=== PATIENT | female | born 1985 | race Caucasian/White ===

== ENCOUNTER 2019-04-03 18:02 | Outpatient (CLI) | payer OTHER ==
[~2019-04-03] VITALS: Ht 160 cm; Wt 102.1 kg
[~2019-04-03 18:02] MED LIST: DENIES; PREN-39 PO
[2019-04-03 19:21] VITALS: BP 134/74; PULSE 96; RESP 18
[2019-04-03 20:03] VITALS: Ht 160 cm; Wt 102.1 kg
[2019-04-03] MEDS ORDERED: ACETAMINOPHEN 500 MG TAB PO STA (23:46)
[2019-04-04] MEDS ORDERED: AL HYDROX/MG HYDROX/SIMETH 30 ML CUP PO ONE
--- NOTE | 2019-04-04 01:41 | TRIAGE ---
OB Triage Datetime Report Generated by CPN: 04/04/2019 01:40 Datetime: 04/04/2019 01:16 Labor Evaluation Frequency: x2 Monitor Mode: External Duration (sec)2399: 80 Quality: Mild Pattern: Normal: <= 5 Contractions in 10 Minutes Resting Tone [employer]: Relaxed Heart Rate FHR Baseline Rate: 125 Monitor Mode: External US Variability: Moderate 6-25 bpm Accelerations: Prolonged Decelerations: None Category: Category I Datetime: 04/04/2019 01:10 Pain Assessment Pain Scale: 0 Pain Presence: None/Denies Pain Type: N/A Pain Assessment Comments: Pt denies cramping, MACK or epigastric pain. Datetime: 04/04/2019 00:30 Labor Evaluation Frequency: x5 Monitor Mode: External Duration (sec)2399: 50-150 Pattern: Normal: <= 5 Contractions in 10 Minutes Resting Tone [employer]: Relaxed Heart Rate FHR Baseline Rate: 130 Monitor Mode: External US Variability: Moderate 6-25 bpm Accelerations: 15X15 Decelerations: None Category: Category I Datetime: 04/04/2019 00:19 Monitor Mode: Palpation Resting Tone [employer]: Relaxed Pain Assessment Pain Scale: 5 Pain Presence: Intermittent Pain Type: Cramping Pain Location: Abdomen Datetime: 04/03/2019 23:30 Labor Evaluation Frequency: x3 Monitor Mode: External Duration (sec)2399: 70-130 Pattern: Normal: <= 5 Contractions in 10 Minutes Resting Tone [employer]: Relaxed Heart Rate FHR Baseline Rate: 130 Monitor Mode: External US Variability: Moderate 6-25 bpm Accelerations: 15X15 Decelerations: None Category: Category I Datetime: 04/03/2019 23:15 Monitor Mode: Palpation Resting Tone [employer]: Relaxed Pain Assessment Pain Scale: 3 Pain Presence: Constant Pain Type: Dull; Ache Pain Location: Abdomen; Head; Other (Annotations: Epigastric) Datetime: 04/03/2019 22:30 Labor Evaluation Frequency: Irregular Monitor Mode: External Resting Tone [employer]: Relaxed Heart Rate FHR Baseline Rate: 130 Monitor Mode: External US Variability: Moderate 6-25 bpm Accelerations: 15X15 Decelerations: None Category: Category I Datetime: 04/03/2019 21:30 Labor Evaluation Frequency: x2 Monitor Mode: External Duration (sec)2399: 120 Quality: Mild Pattern: Normal: <= 5 Contractions in 10 Minutes Resting Tone [employer]: Relaxed Heart Rate FHR Baseline Rate: 130 Monitor Mode: External US Variability: Moderate 6-25 bpm Accelerations: 15X15 Decelerations: Early (Annotations: x1) Category: Category I Datetime: 04/03/2019 19:21 Stage of : OB Triage Assessment Type: Triage Maternal Assessment Level of Consciousness: Fully Conscious DTR's/Clonus: DTRs 2+; No Clonus Headache: Frontal (Annotations: 01/05) Blurred Vision: No Respiratory Effort: Unlabored; Regular Rhythm; Equal Expansion Breath Sounds, Left: Clear and Equal Breath Sounds, Right: Clear and Equal Nausea/Vomiting: Denies RUQ Epigastric Pain: Present (Annotations: 01/05) Lower Extremities Edema: Bilateral Lower Extremities Degree: 1+ Upper Extremities Edema: None Degree: None Facial Edema: None Temperature Route: Oral Fall Risk Assessment History of Falling: (0) No Secondary Diagnosis: (0) No Ambulatory Aid: (0) Bedrest/Nurse Assist IV Therapy: (0) No Gait: (0) Normal/Bedrest/Immobile Mental Status: (0) Oriented to Own Ability Fall Score: 0 Fall Risk Score Definition: No Risk: No action required Pain Assessment Pain Scale: 3 Pain Presence: Constant Pain Type: Dull; Ache Pain Location: Abdomen; Head; Other (Annotations: epigastric) Datetime: 04/03/2019 19:20 Time of Arrival: 04/03/2019 17:51 EGA: 36.3 Arrived By: Ambulatory Arrived From: Office Chief Complaint: Pt sent from office for elevated BP's. Movement: Present Contractions: Denies/Absent Rupture of Membranes: Denies Vaginal Bleeding: None Vaginal Discharge: Denies Recent Sexual Intercouse: Denies Abdominal Trauma: Not Applicable Patient Complaints: Other Additional Patient Complaints: Pt states she has a mild MACK and mild epigastric pain Time Provider Notified: 04/03/2019 20:40 Provider Notified: Dr. Oh Initial Plan: CEFM
--- NOTE | 2019-04-04 15:40 | PN ---
Triage Information Date/Time late entry for the service rendered on 04/03/19 in the evening Reason for visit: sent from clinic for R/O PIH Weeks of Gestation 36w3d /Para Diabetes: none Hypertention: induced Additional information headahe frontal epigastric pain symptoms got alleviated Objective Vital Signs Date Temp Pulse Resp B/P (MAP) Pulse Ox O2 O2 Flow FiO2 Time Delivery Rate 04/03/19 98.8 96 18 134/74 Room Air 19:21 (94) Heart Rate: 130's Heart Rate Comments CAT I tracing Results/Medications Result Diagram: 04/03/19211704/03/192117 Results 24 hrs Laboratory Tests Test 04/03/19 19:15 04/03/19 21:18 Urine Color YELLOW Urine Clarity SLIGHTLY CLOUDY A Urine pH 5.0 Urine Specific [place] 1.024 Urine Ketones 1+ H Urine Nitrite NEGATIVE Urine Bilirubin NEGATIVE Urine Urobilinogen 1+ H Urine Leukocyte Esterase NEGATIVE Urine Microscopic RBC 3 Urine Microscopic WBC 0 Urine Squamous Epithelial Cells FEW Urine Calcium Oxalate Crystals MANY A Urine Bacteria FEW A Urine Mucus MANY A Urine Hemoglobin NEGATIVE Urine Glucose NEGATIVE Urine Total Protein NEGATIVE White Blood Count 9.1 Red Blood Count 3.69 L Hemoglobin 11.5 L Hematocrit 34.0 L Mean Corpuscular Volume 92.1 Mean Corpuscular Hemoglobin 31.2 Mean Corpuscular Hemoglobin Concent 33.8 Red Cell Distribution Width 13.3 Platelet Count 191 Mean Platelet Volume 12.3 H Immature Granulocytes % 0.800 H Neutrophils % 64.8 Lymphocytes % 25.9 Monocytes % 6.9 Eosinophils % 1.2 Basophils % 0.4 Nucleated Red Blood Cells % 0.0 Immature Granulocytes # 0.070 H Neutrophils # 5.9 Lymphocytes # 2.4 Monocytes # 0.6 Eosinophils # 0.1 Basophils # 0.0 Nucleated Red Blood Cells # 0.0 Prothrombin Time 12.8 Prothrombin Time Ratio 1.0 INR International Normalized Ratio 0.95 Activated Partial Thromboplast Time 24.1 Fibrinogen 436.0 Sodium Level 137 Potassium Level 3.9 Chloride Level 108 Carbon Dioxide Level 22 Anion Gap 7 Blood Urea Nitrogen 7 Creatinine 0.39 L Est Glomerular Filtrat Rate mL/min > 60 Glucose Level 79 Uric Acid 3.4 Calcium Level 8.9 Total Bilirubin 0.6 Direct Bilirubin 0.00 Indirect Bilirubin 0.6 Aspartate Amino Transf (AST/SGOT) 16 Alanine Aminotransferase (ALT/SGPT) 14 Alkaline Phosphatase 135 H Total Protein 6.5 Albumin 3.3 Globulin 3.20 Albumin/Globulin Ratio 1.03 Imaging Results BPP /8 RISSA 13.7 Disposition: Discharge Assessment/Plan A IUP 36w3d R/O PIH P f/u in 3days in triage for antepartum test OK with her OB MAYCO MALCOLM MD Apr 04, 2019 15:40
== END 2019-04-04 01:30 | disposition home or self-care (01) ==
LOC: OBT 18:02 → L-D 18:03 → OBT 04-04 01:30
PROVIDERS: ATTEND Obstetrics & Gynecology
DX: O13.3 Gestational [pregnancy-induced] hypertension without significant proteinuria, third trimester (principal); O26.893 Other specified pregnancy related conditions, third trimester; R51 Headache; R10.13 Epigastric pain; O09.523 Supervision of elderly multigravida, third trimester; Z3A.36 36 weeks gestation of pregnancy
CPT/HCPCS: 76818; 80053; 81001; 84560; 85025; 85384; 85610; 85730; Z7500; Z7610; 81003; G0463

== ENCOUNTER 2019-04-10 16:49 | Inpatient (IN) | payer OTHER ==
[~2019-04-10] VITALS: Ht 160 cm; Wt 103.4 kg
[~2019-04-10 16:49] MED LIST changes: -DENIES
[2019-04-10 17:21] VITALS: BP 124/73; PULSE 85; RESP 19; Ht 160 cm; Wt 103.4 kg
--- NOTE | 2019-04-10 18:34 | PN ---
Triage Information Date/Time 04/10/2019 Reason for visit: Sent in from clinic to rule out PIH Weeks of Gestation 37 weeks and 3 days /Para 6 para 5 Diabetes: none Hypertention: none Additional information History of -induced hypertension with previous pregnancies Objective Vital Signs Date Temp Pulse Resp B/P (MAP) Pulse Ox O2 O2 Flow FiO2 Time Delivery Rate 04/10/19 99.1 85 19 124/73 Room Air 17:21 (90) Heart Rate: 140's Heart Rate Comments Reactive Contractions: 6-10 Minutes Apart Exam Cervix is long and 2 cm Results/Medications Result Diagram: 04/10/19 1710 04/10/19 1710 Results 24 hrs Laboratory Tests Test 04/10/19 17:00 04/10/19 17:10 04/10/19 17:20 Urine Color YELLOW Urine Clarity CLOUDY A Urine pH 6.0 Urine Specific [place] 1.024 Urine Ketones NEGATIVE Urine Nitrite NEGATIVE Urine Bilirubin NEGATIVE Urine Urobilinogen 2+ H Urine Leukocyte Esterase NEGATIVE Urine Microscopic RBC 23 H Urine Microscopic WBC 4 Urine Squamous Epithelial Cells FEW Urine Calcium Oxalate Crystals FEW A Urine Mucus MANY A Urine Hemoglobin NEGATIVE Urine Glucose NEGATIVE Urine Total Protein NEGATIVE White Blood Count 8.4 Red Blood Count 3.77 L Hemoglobin 11.7 L Hematocrit 34.9 L Mean Corpuscular Volume 92.6 Mean Corpuscular Hemoglobin 31.0 Mean Corpuscular Hemoglobin Concent 33.5 Red Cell Distribution Width 13.3 Platelet Count 200 Mean Platelet Volume 12.7 H Immature Granulocytes % 0.700 H Neutrophils % 70.7 Lymphocytes % 20.6 Monocytes % 6.8 Eosinophils % 0.8 Basophils % 0.4 Nucleated Red Blood Cells % 0.0 Immature Granulocytes # 0.060 H Neutrophils # 6.0 Lymphocytes # 1.7 Monocytes # 0.6 Eosinophils # 0.1 Basophils # 0.0 Nucleated Red Blood Cells # 0.0 Activated Partial Thromboplast Time 24.4 Fibrinogen 421.0 Sodium Level 138 Potassium Level 4.0 Chloride Level 108 Carbon Dioxide Level 22 Anion Gap 8 Blood Urea Nitrogen 9 Creatinine 0.40 L Est Glomerular Filtrat Rate mL/min > 60 Glucose Level 75 Uric Acid 3.2 Calcium Level 9.0 Total Bilirubin 0.4 Direct Bilirubin 0.00 Indirect Bilirubin 0.4 Aspartate Amino Transf (AST/SGOT) 13 L Alanine Aminotransferase (ALT/SGPT) 13 Alkaline Phosphatase 152 H Total Protein 6.9 Albumin 3.5 Globulin 3.40 H Albumin/Globulin Ratio 1.02 Membranes Rupture NEGATIVE Imaging Results There is a normal amount of amniotic fluid with an RISSA = 10.1 cm. Disposition: Discharge Assessment/Plan -induced hypertension is ruled out Uric acid was reported as less than 4 Currently patient has no symptoms Blood pressures appear stable and between 120s over 70s Patient was asked to refer to OB triage in 4 days for rechecking blood pressure DESTINEE MURILLO MD Apr 10, 2019 18:34
[2019-04-10] MEDS ORDERED: LIDOCAINE 1% (MPF) 30 ML INJ INJ PRN (21:00)
[2019-04-10] MEDS ORDERED: METHYLERGONOVINE 0.2 MG INJ IM PRN (21:00)
[2019-04-10] MEDS ORDERED: ACETAMINOPHEN 500 MG TAB PO ONE (21:00)
[2019-04-10] MEDS ORDERED: BUTORPHANOL 2 MG INJ IV PRN (21:00)
[2019-04-10] MEDS ORDERED: OXYTOCIN 30 UNITS/LR 500 ML IV PRN (21:00)
[2019-04-10] MEDS ORDERED: CARBOPROST 250 MCG INJ IM PRN (21:00)
[2019-04-10] MEDS ORDERED: OXYTOCIN 30 UNITS/LR 500 ML IV SCH ×2 (21:00)
[2019-04-10] MEDS ORDERED: IBUPROFEN 600 MG TAB PO PRN (21:00)
[2019-04-10] MEDS ORDERED: MISOPROSTOL 200 MCG TAB PR PRN (21:00)
[2019-04-10] MEDS ORDERED: LACTATED RINGER'S 1,000 ML IV PRN (21:29)
[2019-04-10] MEDS ORDERED: AMPICILLIN 2 GM/NS (PMX) 100 ML IV ONE (21:30)
[2019-04-10] MEDS ORDERED: MINERAL OIL LIGHT 10 ML VIAL TOP SCH (21:30)
[2019-04-10] MEDS: LACTATED RINGER'S 1,000 ML IV SCH (22:34)
[2019-04-11] MEDS: AMPICILLIN 1 GM/NS (PMX) 50 ML IV SCH ×3 (03:26→11:39)
[2019-04-11] MEDS: LACTATED RINGER'S 1,000 ML IV SCH ×2 (08:23→17:19)
--- NOTE | 2019-04-11 11:06 | HP ---
Date/Time of Note Date/Time of Note DATE: 04/11/19 TIME: 11:03 OB - History Hx of Present Free Text/Dictation 33-year-old female 6 para 5 at 37+ weeks gestation was sent in from clinic to rule out -induced hypertension and noticed to have regular uterine contractions with change cervix Last Menstrual Period: Jul 22, 2018 Estimated Due Date: Apr 28, 2019 : 6 Para: 5 Past Family/Social History * Past Medical, Surgical, Family and Obstetric Histories reviewed from chart. Blood Type: A+ Rubella: immune RPR/VDRL: Negative GBS Status: Unknown HBsAG: Negative OB Admission Exam Vital Signs Vital Signs Vital Signs Date Temp Pulse Resp B/P (MAP) Pulse Ox O2 O2 Flow FiO2 Time Delivery Rate 04/10/19 99.1 85 19 124/73 Room Air 17:21 (90) Physical Exam HEENT: WNL Heart: Rhythm Normal Lungs: Clear, Equal Abdomen: WNL Extremities: Normal Reflexes: Normal Cervical Dilatation: 4cm Effacement: 50% Station: -3 Membranes: Intact Heart Rate: 140's Accelerations: Accelerations Present Decelerations: No Decelerations Varibility: Marked Contractions on Admission: 6-10 Minutes Apart Intensity: Mild Last 72 hours Lab Results CBC & BMP 04/10/19 17:10 Liver Function Test 04/10/19 17:10 Alanine Aminotransferase (ALT/SGPT) 13 Albumin 3.5 Alkaline Phosphatase 152 H Aspartate Amino Transf (AST/SGOT) 13 L Direct Bilirubin 0.00 Total Protein 6.9 OB Assessment/Plan Other Assessment: 37 weeks gestation in labor contractions Advanced maternal age and grand multiparity Other plan: Continue expectant management and observe for cervical change DESTINEE MURILLO MD Apr 11, 2019 11:06
[2019-04-12] MEDS: LACTATED RINGER'S 1,000 ML IV SCH ×2 (04:25→12:50)
--- NOTE | 2019-04-12 14:46 | PD.PPDC ---
HEALTHCARE MARKETER Discharge Instruction Provider Information Physician Information 33-year-old female admitted in early labor and had no cervical change for at least 48-hour prior to being discharged 37 weeks Diagnosis [id number] Final Diagnosis: Yphaz0y Latent phase of labor Condition Asojb2Ym Patient Condition: Ypjdm9w Good Diet Ldydy4Jo Diet: Mieqq0p Resume Regular Diet Activity/Restrictions Yjusn9Wl Activity: Lobcn6f Normal Activity May Shower [id number] Restrictions: Foouy9u Nothing in the Vagina [id number] Return to Work or School: [id number] Apr 17, 2019 Follow-up Follow-up with Physician: 5, Day/Days (In clinic) Return to clinic for Comment: Return to OB triage in case of ruptured membrane or uterine contractions 3 and 20 minutes DESTINEE MURILLO MD Apr 12, 2019 14:46
--- NOTE | 2019-04-12 14:50 | DS ---
Date/Time of Note Date/Time of Note DATE: 04/12/19 TIME: 14:47 Obstetrical Discharge Record Final Diagnosis Final Diagnosis: Term not delivered Other Final Diagnosis Latent phase of labor Condition on Discharge Physical Assessment Last Vitals: See nurse's notes Voiding: Yes Bowel Movement: Yes Breast: Soft, non-tender, Filling Fundus: Other Abdomen and Incision: Abdomen is gravid fundal height is 39 heart tones are reactive Calf Tenderness: No Patient Condition: Good (Follow-up in clinic in 5 days) DESTINEE MURILLO MD Apr 12, 2019 14:50
== END 2019-04-12 15:00 | disposition home or self-care (01) | DRG 833 ==
LOC: L-D 16:49 → OBT 16:49 → L-D 17:07 → OBT 20:28 → L-D 21:52
PROVIDERS: ADMIT Obstetrics & Gynecology; ATTEND Obstetrics & Gynecology
DX: O62.0 Primary inadequate contractions (principal); O09.523 Supervision of elderly multigravida, third trimester; Z87.59 Personal history of other complications of pregnancy, childbirth and the puerperium; Z3A.37 37 weeks gestation of pregnancy
CPT/HCPCS: 76818; 80053; 81001; 84112; 84560; 85025; 85384; 85730; 86592; 86850; 86900; 86901; 87340; G0463; J0290; J7120

== ENCOUNTER 2019-04-21 09:30 | Inpatient (IN) | payer OTHER ==
[~2019-04-21] VITALS: Ht 160 cm; Wt 101.6 kg
[2019-04-21] MEDS ORDERED: LACTATED RINGER'S 1,000 ML IV PRN (10:36)
[2019-04-21 10:40] VITALS: Ht 160 cm; Wt 101.6 kg
[2019-04-21] MEDS ORDERED: IBUPROFEN 600 MG TAB PO PRN (11:00)
[2019-04-21] MEDS ORDERED: OXYTOCIN 30 UNITS/LR 500 ML IV SCH ×3 (11:00)
[2019-04-21] MEDS ORDERED: BUTORPHANOL 2 MG INJ IV PRN ×2 (11:00)
[2019-04-21] MEDS ORDERED: OXYTOCIN 30 UNITS/LR 500 ML IV PRN ×2 (11:00→23:30)
[2019-04-21] MEDS ORDERED: MISOPROSTOL 200 MCG TAB PR PRN ×2 (11:00→23:30)
[2019-04-21] MEDS ORDERED: METHYLERGONOVINE 0.2 MG INJ IM PRN ×2 (11:00→23:30)
[2019-04-21] MEDS ORDERED: CARBOPROST 250 MCG INJ IM PRN ×2 (11:00→23:30)
[2019-04-21] MEDS ORDERED: LIDOCAINE 1% (MPF) 30 ML INJ INJ PRN (11:00)
[2019-04-21] MEDS: LACTATED RINGER'S 1,000 ML IV SCH ×2 (11:10→18:58)
[2019-04-21] MEDS ORDERED: MINERAL OIL LIGHT 10 ML VIAL TOP ONE (16:00)
--- NOTE | 2019-04-21 17:21 | HP ---
Date/Time of Note Date/Time of Note DATE: 04/21/19 TIME: 17:16 OB - History Hx of Present Free Text/Dictation 33-year-old female 6 para 5 at 39 weeks gestation admitted for induction of labor Last Menstrual Period: Jul 22, 2018 Estimated Due Date: Apr 28, 2019 : 6 Para: 5 Care: Good Care Ultrasounds: Normal mid trimester US Obstetrical Complications: Other (Grand multiparity, advanced maternal age, possible macrosomia) Medical Complications: None Past Family/Social History * Past Medical, Surgical, Family and Obstetric Histories reviewed from chart. Blood Type: A+ Rubella: immune RPR/VDRL: Negative GBS Status: Negative HBsAG: Negative OB Admission Exam Vital Signs Vital Signs Seen nurse's notes Physical Exam HEENT: WNL Heart: Rhythm Normal Lungs: Clear, Equal Abdomen: WNL Extremities: Normal Reflexes: Normal Cervical Dilatation: 4cm Effacement: 50% Station: -3 Membranes: Intact Heart Rate: 140's Accelerations: Accelerations Present Decelerations: No Decelerations Varibility: Marked Contractions on Admission: >10 Minutes Apart Last 72 hours Lab Results CBC & BMP 04/21/19 10:45 Liver Function Test 04/21/19 10:45 Alanine Aminotransferase (ALT/SGPT) 11 L Albumin 3.5 Alkaline Phosphatase 159 H Aspartate Amino Transf (AST/SGOT) 16 Direct Bilirubin 0.00 Total Protein 6.5 OB Assessment/Plan Other Assessment: Term gestation Advanced maternal age with grand multiparity Estimation of weight around 4200 g Other plan: Amniotomy was performed If uterine contractions do not start spontaneously will consider low-dose Pitocin augmentation DESTINEE MURILLO MD Apr 21, 2019 17:21
[2019-04-21] MEDS ORDERED: ACETAMINOPHEN 500 MG TAB PO STA (20:34)
[2019-04-21] MEDS ORDERED: KETOROLAC 30 MG INJ IV STA (20:34)
--- NOTE | 2019-04-21 20:40 | LDN ---
Date/Time of Note Date/Time of Note DATE: 04/21/19 TIME: 20:38 Delivery Summary of a viable infant over intact perineum Weeks of Gestation 39 weeks Placenta Delivered: Spontaneously, Intact & Complete Meconium: none Episiotomy: No Perineal laceration: 0 Anesthesia type: None Estimated blood loss: 200 Sponge & Needle done & correct: Yes All needle counts correct: Yes Any foreign bodies felt in the: No Infant Delivery Information Sex Sex: male Apgars 1 Minute: 8 5 Minute: 9 Suctioning Nose & mouth suctioned at esvin: Yes Delee suction performed: No Umbilical Cord Umbilical cord with: 3 Vessels Cord presentations: no nuchal cord Cord Blood was obtained: Yes Mother & Baby Disposition Disposition Mom & Baby to Maternity; Good: Yes (mother and baby were recovered in good condition ) Mom transferred to: Other (maternity) Baby to NICU: No DESTINEE MURILLO MD Apr 21, 2019 20:40
[2019-04-21 22:30] VITALS: BP 130/73; PULSE 79; RESP 18
[2019-04-21] MEDS ORDERED: DIBUCAINE 1% 30 GM OINT TOP PRN (23:30)
[2019-04-21] MEDS ORDERED: BENZOCAINE 20% 56 ML SPRAY TOP PRN (23:30)
[2019-04-21] MEDS ORDERED: WITCH HAZEL/GLYCERIN PAD PR PRN (23:30)
[2019-04-21] MEDS ORDERED: LANOLIN HPA 1 PKT TOP PRN (23:30)
[2019-04-21] MEDS ORDERED: HYDROCODONE/APAP (5/325) TAB PO PRN ×2 (23:30)
[2019-04-21] MEDS ORDERED: ZOLPIDEM 5 MG TAB PO PRN (23:30)
[2019-04-22] MEDS: IBUPROFEN 600 MG TAB PO SCH ×4 (00:14→17:44)
[2019-04-22] MEDS: LACTATED RINGER'S 1,000 ML IV* SCH ×3 (01:45→15:06)
[2019-04-22 04:28] VITALS: BP 96/58; PULSE 103; RESP 18
[2019-04-22 08:30] VITALS: BP 91/54; PULSE 71; RESP 16
[2019-04-22] MEDS: SENNA/DOCUSATE NA (8.6MG/50MG) TAB PO SCH ×2 (09:15→21:06)
[2019-04-22] MEDS: MAGNESIUM HYDROXIDE 30ML CUP PO SCH ×2 (09:15→21:06)
[2019-04-22 15:40] VITALS: BP 121/71; PULSE 83; RESP 20
[2019-04-22 19:50] VITALS: BP 110/72; PULSE 78; RESP 18
[2019-04-23] MEDS: IBUPROFEN 600 MG TAB PO SCH ×3 (00:29→12:16)
[2019-04-23] MEDS: LACTATED RINGER'S 1,000 ML IV* SCH (00:29)
[2019-04-23 05:10] VITALS: BP 128/79; PULSE 78; RESP 18
[2019-04-23 08:00] VITALS: BP 122/65; PULSE 75; RESP 18
[2019-04-23 08:30] VITALS: BP 122/65; PULSE 75; RESP 18
[2019-04-23] MEDS: SENNA/DOCUSATE NA (8.6MG/50MG) TAB PO SCH (08:34)
[2019-04-23] MEDS: MAGNESIUM HYDROXIDE 30ML CUP PO SCH (08:35)
[2019-04-23] MEDS ORDERED: VARICELLA VACCINE LIVE/PF 1,350 UNIT/0.5 ML ML SC* ONE (09:00)
[2019-04-23] MEDS ORDERED: DIPHTH/TET/ACEL PERTUSS (ADULT) 0.5 ML VIAL IM* ONE (09:00)
[2019-04-23] MEDS ORDERED: MEASLES,MUMPS,RUBELLA VACCINE INJ SC* ONE (09:00)
--- NOTE | 2019-04-23 13:09 | PN ---
Date/Time of Note Date/Time of Note Late entry DATE: 04/22/19 Assessment/Plan VTE Prophylaxis Risk score (from Ns)>0 risk: 1 SCD applied (from Ns): No SCD contraindicated: low risk/ambulating Pharmacological prophylaxis: NA/contraindicated Pharm contraindication: low risk/ambulating Lines/Catheters IV [facility] Peripheral IV Assessment/Plan Assessment/Plan Status post vaginal delivery day #1 We will continue to ambulate She was offered to have a tubal ligation refused Result Diagram: 04/22/19 0719 04/21/19 1045 Subjective 24 Hr Interval Summary Free Text/Dictation No major complaints Constitutional: no complaints, improved Eyes: no complaints ENT: no complaints Respiratory: no complaints Cardiovascular: no complaints Gastrointestinal: no complaints Genitourinary: no complaints Musculoskeletal: no complaints Skin: no complaints Neurologic: no complaints Endocrine: no complaints Lymphatic: no complaints Psychological: no complaints, nl mood/affect Immunologic: no complaints Exam/Review of Systems Exam Vitals Vital Signs Date Temp Pulse Resp B/P (MAP) Pulse Ox O2 O2 Flow FiO2 Time Delivery Rate 04/23/19 97.9 75 18 122/65 Room Air 08:30 (84) Intake and Output 04/22/19 04/22/19 04/23/19 1515:00 23:00 07:00 OutputOutput Total 400 ml BalanceBalance -400 ml Exam Fundus is firm Constitutional: alert, oriented, well developed Psych: no complaints, nl mood/affect Head: normocephalic, atraumatic Eyes: nl conjunctiva, EOMI, nl lids, nl sclera, PERRL ENMT: nl external ears & nose, nl lips & teeth, nl nasal mucosa & septum Neck: supple, non-tender Respiratory: clear to auscultation, normal air movement Cardiovascular: regular rate and rhythm, nl pulses Gastrointestinal: soft, nl liver, spleen, non-tender Musculoskeletal: nl extremities to inspection, nl gait and stance Extremities: normal pulses Neurological: ADOPTION SPECIALIST II-XII intact, nl mental status, nl speech, nl strength Skin: nl turgor; No rash or lesions Lymph: nl lymph nodes Medications Medication Current Medications Ibuprofen (Motrin) 600 mg Q6 PO Last administered on 04/23/19at 12:16; Admin Dose 600 MG; Start 04/22/19 at 00:00 Acetaminophen/ Hydrocodone Bitart ([place] (5/325)) 1 tab Q4H PRN PO .PAIN 1-5 Last administered on 04/22/19 09:16; Admin Dose 1 TAB; Start 04/21/19 at 23:30 Acetaminophen/ Hydrocodone Bitart ([place] (5/325)) 2 tab Q4H PRN PO .PAIN 6-10; Start 04/21/19 at 23:30 Zolpidem Tartrate (Ambien) 5 mg QHS PRN PO .INSOMNIA; Start 04/21/19 at 23:30 Senna/Docusate Sodium (Senokot-S) 1 tab BID PO Last administered on 04/23/19 08:34; Admin Dose 1 TAB; Start 04/22/19 at 09:00 Magnesium Hydroxide (Milk Of Mag) 30 ml Q12 PO Last administered on 04/23/19 08:35; Admin Dose 30 ML; Start 04/22/19 at 09:00 Witch Jael/ Glycerin (Tucks Pads) 1 pad BEDSIDE MEDICATION PRN WI .HEMORRHOID/EPISIOTOMY PAIN Last administered on 04/22/19 00:14; Admin Dose 1 PAD; Start 04/21/19 at 23:30 Benzocaine (Dermoplast [place]) 1 spray BEDSIDE MEDICATION PRN TOP .HEMMORHOID/EPISIOTOMY PAIN Last administered on 04/22/19at 00:14; Admin Dose 1 SPRAY; Start 04/21/19 at 23:30 Dibucaine (Nupercainal) 1 applic BEDSIDE MEDICATION PRN TOP .HEMMORHOID/EPISIOTOMY; Start 04/21/19 at 23:30 Lanolin (Lanolin Hpa) 1 applic BEDSIDE MEDICATION PRN TOP .NIPPLES; Start 04/21/19 at 23:30 Oxytocin/Lactated Ringer's 500 ml @ 0 mls/hr ONCE PRN IV .VAGINAL BLEEDING Last administered on 04/22/19 00:16; Admin Dose 125 MLS/HR; Start 04/21/19 at 23:30 Methylergonovine Maleate (Methergine) 0.2 mg ONCE PRN IM .VAGINAL BLEEDING; Start 04/21/19 at 23:30 Carboprost Tromethamine (Hemabate) 250 mcg ONCE PRN IM .VAGINAL BLEEDING; Start 04/21/19 at 23:30 Misoprostol (Cytotec) 1,000 mcg ONCE PRN WI .VAGINAL BLEEDING; Start 04/21/19 at 23:30 DESTINEE MURILLO MD Apr 23, 2019 13:09
--- NOTE | 2019-04-23 13:11 | DS ---
Date/Time of Note Date/Time of Note DATE: 04/23/19 TIME: 13:09 Obstetrical Discharge Record Final Diagnosis Final Diagnosis: Term delivered Other Final Diagnosis Status post vaginal delivery Vaginal Delivery Obstetrical Delivery: Spontaneous Complications Augmentation: Yes Condition on Discharge Physical Assessment Last Vitals: See nurse's notes Voiding: Yes Bowel Movement: Yes Breast: Soft, non-tender, Filling Fundus: Firm Abdomen and Incision: Abdomen is soft with present bowel sounds Episiotomy: Perineum is clean Calf Tenderness: No Patient Condition: Good DESTINEE MURILLO MD Apr 23, 2019 13:11
--- NOTE | 2019-04-23 13:12 | PD.PPDC ---
BONDING MACHINE SETTER Discharge Instruction Provider Information Physician Information 34-year-old female had vaginal delivery Diagnosis Doqmx9Da Final Diagnosis: Ilalp9z Status post vaginal delivery Condition Tmncb3Oc Patient Condition: Uidhe4p Good Diet Lwiwr8Dg Diet: Xcqhg8a Resume Regular Diet Activity/Restrictions Tabqf7Ah Activity: Ecnbg2k Normal Activity May Shower Rlqxz1Ht Restrictions: Dmugt2t Nothing in the Vagina Cgaah9Um Return to Work or School: Fwbpc2a Jun 09, 2019 Follow-up Follow-up with Physician: 2, 4, Week/Weeks (In clinic) Return to clinic for Wwgkq3Vy OB Instructions: Cuiku4e Breast Tenderness Depression Comment: Pelvic rest for 6 weeks DESTINEE MURILLO MD Apr 23, 2019 13:12
[2019-04-23] MEDS ORDERED: IBUP-1542 PO (13:13)
[2019-04-23 15:32] VITALS: BP 124/75; PULSE 83; RESP 20
--- NOTE | 2019-04-24 16:53 | DELSUM ---
Delivery Summary A-C Datetime Report Generated by N: 04/24/2019 16:53 DELIVERY PERSONNEL Heating Engineer: Loyd, Shanon MATERNAL INFORMATION Delivery Anesthesia: None Medications in Delivery: PITOCIN 30 UNITS (Annotations: Data stored by [facility] on behalf of user) Delivery QBL (ml): 300 Placenta Cultured: No Maternal Complications: Other Other Maternal Complications: ELEVATED BLOOD PRESSURES; GRAND MULTIP LABOR SUMMARY EDC: 04/28/2019 00:00 No. Babies in Womb: 1 Attempted: No Labor Anesthesia: None LABOR INFORMATION Reason for Induction: Gest. HTN/PreEclam/Eclamp Onset of Labor: 04/21/2019 15:03 Complete Dilatation: 04/21/2019 20:15 Oxytocin: N/A Group B Beta Strep: Negative Antibiotics # of Doses: 0 Steroids Given: None Reason Steroids Not Administered: Not Applicable MEMBRANES Membranes Rupture Method: Artificial Rupture of Membranes: 04/21/2019 15:03 Length of Rupture (hr): 5.28 Amniotic Fluid Color: Clear Amniotic Fluid Amount: Large Amniotic Fluid Odor: None STAGES OF LABOR Stage 1 hr: 5 Stage 1 min: 12 Stage 2 hr: 0 Stage 2 min: 5 Stage 3 hr: 0 Stage 3 min: 5 Total Time in Labor hr: 5 Total Time in Labor min: 22 VAGINAL DELIVERY Episiotomy: None Laceration Extension: N/A Laceration Type: None Laceration Repair: Not Applicable Initial Vag Sponge Count: 10 Final Vag Sponge Count: 10 Initial Vag Sharps Count: 1 Final Vag Sharps Count: 1 Sponge Count Correct: Yes Sharps Count Correct: Yes Count Comment: 15 instruments BABY A INFORMATION Delivery Date/Time: 04/21/2019 20:20 Method of Delivery: Vaginal Born in Route : No : N/A Forceps: N/A Vacuum Extraction: N/A Shoulder Dystocia : No SHOULDER DYSTOCIA BABY A Delivery Date/Time: 04/21/2019 20:20 PRESENTATION/POSITION BABY A Presentation: Cephalic Cephalic Presentation: Vertex Breech Presentation: N/A PLACENTA INFORMATION BABY A Placenta Delivery Time : 04/21/2019 20:25 Placenta Method of Delivery: Spontaneous Placenta Status: Delivered SCORES BABY A Heart Rate 1 min: >100 bpm Resp Effort 1 min: Good Cry Reflex Irritability 1 min: Cough/Sneeze/Pulls Away Muscle Tone 1 min: Active Motion Color 1 min: Body [place], Extremit Blue Resuscitation Effort 1 min: Tactile Stimulation SCORE 1 MIN: 9 Heart Rate 5 min: >100 bpm Resp Effort 5 min: Good Cry Reflex Irritability 5 min: Cough/Sneeze/Pulls Away Muscle Tone 5 min: Active Motion Color 5 min: Body [place], Extremit Blue Resuscitation Effort 5 min: N/A SCORE 5 MIN: 9 INFANT INFORMATION BABY A Gestational Age at Delivery: 39.0 Gestational Status: Full Term- 39- 40.6 Weeks Outcome : Liveborn, with signs of life Condition : Stable Sex: Male IDENTIFICATION/MEDS BABY A ID Band Number: [id number] ID Band Location: Right Leg; Left Arm Sensor Applied: Yes Sensor Number: [id number] Sensor Location : Cord Clamp Vitamin K Given : Not Given Erythromycin Given: Not Given WEIGHT/LENGTH BABY A Birthweight (gm): 4155 Weight (lb): 9 Weight (oz): 3 Length (in): 20.50 Length (cm): 52.07 CORD INFORMATION BABY A No. Cord Vessels: 3 Nuchal Cord : N/A Cord Blood Taken: Yes Infant Suction: Mouth; Nose ASSESSMENT BABY A Complications: None Physical Findings at Delivery: Puncture Wnd - Scalp Elec Physical Findings- Other: Voided Infant Respirations: Appears Normal Tying Machine Operator Lumber/ALS Called : Yes Care By: RT _ RN from L_D Transferred To: Remains with Mother
== END 2019-04-23 16:15 | disposition home or self-care (01) | DRG 807 ==
LOC: L-D 10:13 → PP1 22:40
PROVIDERS: ADMIT Obstetrics & Gynecology; ATTEND Obstetrics & Gynecology
PROC: 10907ZC Drainage of Amniotic Fluid, Therapeutic from Products of Conception, Via Natural or Artificial Opening (ICD-10-PCS; 2019-04-21)
PROC: 10E0XZZ Delivery of Products of Conception, External Approach (ICD-10-PCS; principal; 2019-04-21 09:30)
DX: O36.63X0 Maternal care for excessive fetal growth, third trimester, not applicable or unspecified (principal); Z37.0 Single live birth; Z3A.39 39 weeks gestation of pregnancy
CPT/HCPCS: 76815; 80053; 84560; 85025; 85384; 85610; 85730; 86592; 86850; 86900; 86901; 87340; 90716; 99464; J1885; J2590; J7120